=== PATIENT | male | born 1965 | race African-American/Black ===

== ENCOUNTER 2021-01-18 13:07 | Emergency (ER) | payer SELFPAY ==
[2021-01-19 13:39] LABS: SARS-CoV-2 PCR by NAA Not Detected (NotDetected)
== END 2021-01-18 14:58 | disposition home or self-care (01) ==
LOC: ERS 13:07
DX: Z01.812 Encounter for preprocedural laboratory examination (principal); Z20.822 Contact with and (suspected) exposure to COVID-19; Z85.46 Personal history of malignant neoplasm of prostate
CPT/HCPCS: 99283; U0003; U0005